=== PATIENT | female | born 1945 | race Caucasian/White ===

== ENCOUNTER 2018-03-01 04:54 | Emergency (ER) | payer MEDICARE ==
[~2018-03-01 04:54] MED LIST: ASPI325T PO; DHA100CA OR; IRBE150T51 PO; KCL20 PO; SERT100 PO
[2018-03-01 05:01] VITALS: BP 121/73; PULSE 87; RESP 16; O2SAT 99
[2018-03-01 05:54] LABS: BACTERIA, URINE OCC /hpf; BILIRUBIN, URINE NEG (NEG); BLOOD, URINE NEG (NEG); GLUCOSE,URINE NEG (NEG); HYALINE CAST, URINE 15 /lpf (RARE); KETONE, URINE TRACE mg/dL (NEG); MUCUS URINE FEW /lpf (OCC); NITRITE,URINE NEG (NEG); SQUAMOUS EPITHELIAL CELL URINE 1 /hpf (0-5); TRANSITIONAL EPI CELLS, URINE <1 /hpf; URINE COLOR DARK-BROWN (YELLW/STRAW); URINE LEUKOCYTE ESTERASE SMALL (NEG)
[2018-03-01] MEDS ORDERED: METO25TA3 PO (05:58)
[2018-03-01] MEDS ORDERED: ACYC200C66 PO (05:58)
[2018-03-01] MEDS ORDERED: PRIL20TA2 (05:58)
[2018-03-01] MEDS ORDERED: FOLBTAB4 (05:58)
[2018-03-01] MEDS ORDERED: LOVA10TA PO (05:58)
[2018-03-01] MEDS ORDERED: LAMO100T PO (05:58)
[2018-03-01] MEDS ORDERED: LISI2.5T3 PO (05:58)
[2018-03-01] MEDS ORDERED: LENA10CA (05:58)
[2018-03-01 06:09] VITALS: O2SAT 99
[2018-03-01 06:31] LABS: AUTOMATED NEUTROPHIL # 4.3 TH/MM3 (1.8-7.7); BASOPHIL # 0.1 TH/MM3 (0-0.2); EOSINOPHIL # 0.2 TH/MM3 (0-0.4); EOSINOPHIL % 3.1 % (0.0-4.0); HEMATOCRIT 41.1 % (35.0-46.0); HEMOGLOBIN 14.3 GM/DL (11.6-15.3); LYMPH % 17.7 % (9.0-44.0); LYMPHOCYTE # 1.1 TH/MM3 (1.0-4.8); MEAN CELL VOLUME 88.1 FL (80.0-100.0); MEAN CORPUSCULAR HEMOGLOBIN 30.6 PG (27.0-34.0); MEAN CORPUSCULAR HGB CONC 34.7 % (32.0-36.0); MONO % 10.9 % (0.0-8.0); MONOCYTE # 0.7 TH/MM3 (0-0.9); NEUT % 67.3 % (16.0-70.0); PLATELET COUNT 279 TH/MM3 (150-450); RED BLOOD COUNT 4.67 MIL/MM3 (4.00-5.30); RED CELL DISTRIBUTION WIDTH 16.2 % (11.6-17.2); WHITE BLOOD COUNT 6.4 TH/MM3 (4.0-11.0)
[2018-03-01 06:55] LABS: ALBUMIN 3.6 GM/DL (3.4-5.0); ALKALINE PHOSPHATASE 58 U/L (45-117); ALT (GPT) 33 U/L (10-53); AST (GOT) 32 U/L (15-37); BICARBONATE 23.4 MEQ/L (21.0-32.0); BLOOD UREA NITROGEN 24 MG/DL (7-18); CALCIUM 9.3 MG/DL (8.5-10.1); CHLORIDE 107 MEQ/L (98-107); GLOMERULAR FILTRATION RATE 37 ML/MIN (>89); GLUCOSE,RANDOM 160 MG/DL (74-106); SODIUM (NA) 143 MEQ/L (136-145); TOTAL BILIRUBIN ADULT 1.7 MG/DL (0.2-1.0); TOTAL PROTEIN 6.7 GM/DL (6.4-8.2)
--- NOTE | 2018-03-01 07:00 | PD ---
HPI Chief Complaint: Abdominal Pain Time Seen by Provider: 05:12 Travel History International Travel<30 days: No Contact w/Intl Traveler<30days: No Traveled to known affect area: No History of Present Illness HPI Patient is a 72-year-old female with multiple medical complaints she is saying that she is having dysuria difficulty urinating and has hematuria she has a bladder suspension surgery that she is waiting to have with Dr. Headley she also reports that she is on Eliquis for multiple myeloma she has a cardiac arrhythmia she has paroxysmal A. fib for which she is taking the Eliquis she says she has cognitive issues and psychological issues and her main complaint tonight is dysuria and decreased output urgency and hematuria she has not seen another doctor for this and she is not taking any medication to alleviate the symptoms PFSH Past Medical History Asthma: Yes Atrial Fibrillation: Yes Bipolar Disorder: Yes Anxiety: Yes Depression: Yes Heart Rhythm Problems: Yes (HR BEEN ELEVATED "W/OUT REASON RECENTLY") Cancer: Yes (MELANOMAS,ALL TYPES SKIN CA) Cardiovascular Problems: Yes High Cholesterol: No Chest Pain: Yes ("SOMETIMES WITH S/S OF TIA") Congestive Heart Failure: No Diabetes: No Patient Takes Glucophage: No Diminished Hearing: No Endocrine: No Genitourinary: No Hypertension: Yes Medical other: Yes (myeloma) Musculoskeletal: Yes (ARTHRITIS) Neurologic: Yes (HX TIAS THINKS THIS IS HER 4TH,LAST TIA ABOUT 2YRS AGO) Psychiatric: Yes Reproductive: No Respiratory: Yes Thyroid Disease: No Menopausal: Yes Past Surgical History Other Surgery: Yes (BREAST REDUCTION,TUMMY TUCK, SINUS, ) Social History Alcohol Use: Yes (OCC) Tobacco Use: No Substance Use: No Allergies-Medications (Allergen,Severity, Reaction): Coded Allergies: No Known Allergies (Verified Allergy, Unknown, 03/02/18) Reported Meds & Prescriptions Reported Meds & Active Scripts Active Pyridium (Phenazopyridine HCl) 100 Mg Tab 100 Mg PO Q8H PRN Levaquin (Levofloxacin) 750 Mg Tablet 750 Mg PO DAILY Reported Dexamethasone 4 Mg Tab 4 Mg PO WEEKLY Flonase Nasal [place] (Fluticasone Nasal [place]) 50 Mcg/Act [place] 50 Mcg EACH NARE BID Revlimid (Lenalidomide) 20 Mg Capsule 15 Mg PO DAILY Prilosec (Omeprazole Magnesium) 20 Mg Tab 40 Mg Acyclovir 200 Mg Cap 200 Mg PO BID NEB Lamotrigine 100 Mg Tab 100 Mg PO DAILY Revlimid (Lenalidomide) 10 Mg Capsule 15 Lovastatin 10 Mg Tab 10 Mg PO DAILY Lisinopril 2.5 Mg Tab 2.5 Mg PO DAILY Folbic (Folic Dmkt-Mzgwwzbtax-Jugukfaa) 2.5-25-2 Mg Tab Metoprolol Tartrate 25 Mg Tab 12.5 Mg PO BID Review of Systems Except as stated in HPI: all other systems reviewed are Neg General / Constitutional: Positive: Chills Genitourinary: Positive: Urgency, Dysuria, Hematuria Physical Exam Narrative Patient has white cells and bacteria and was given Ancef and treated with Keflex follow-up with Dr. Headley Data Data Last Documented VS Orders Orders Urinalysis - C+S If Indicated (03/01/18 05:19) Urine Culture (03/01/18 05:35) Complete Blood Count With Diff (03/01/18 06:06) Comprehensive Metabolic Panel (03/01/18 06:06) Iv Access Insert/Monitor (03/01/18 06:06) Oxygen Administration (03/01/18 06:06) Oximetry (03/01/18 06:06) Lipase (03/01/18 06:06) Cefazolin Inj (Ancef Inj) (03/01/18 07:00) Ed Discharge Order (03/01/18 07:21) Labs Laboratory Tests Test 03/01/18 05:35 03/01/18 06:10 Urine Color DARK-BROWN Urine Turbidity HAZY Urine pH 5.0 Urine Specific [place] 1.020 Urine Protein TRACE mg/dL Urine Glucose (UA) NEG mg/dL Urine Ketones TRACE mg/dL Urine Occult Blood NEG Urine Nitrite NEG Urine Bilirubin NEG Urine Urobilinogen 2.0 MG/DL Urine Leukocyte Esterase SMALL Urine WBC 3 /hpf Urine Squamous Epithelial Cells 1 /hpf Urine Transitional Epithelial Cells <1 /hpf Urine Bacteria OCC /hpf Urine Hyaline Casts 15 /lpf Urine Mucus FEW /lpf Microscopic Urinalysis Comment CATH-CULTURE IND White Blood Count 6.4 TH/MM3 Red Blood Count 4.67 MIL/MM3 Hemoglobin 14.3 GM/DL Hematocrit 41.1 % Mean Corpuscular Volume 88.1 FL Mean Corpuscular Hemoglobin 30.6 PG Mean Corpuscular Hemoglobin Concent 34.7 % Red Cell Distribution Width 16.2 % Platelet Count 279 TH/MM3 Mean Platelet Volume 8.0 FL Neutrophils (%) (Auto) 67.3 % Lymphocytes (%) (Auto) 17.7 % Monocytes (%) (Auto) 10.9 % Eosinophils (%) (Auto) 3.1 % Basophils (%) (Auto) 1.0 % Neutrophils # (Auto) 4.3 TH/MM3 Lymphocytes # (Auto) 1.1 TH/MM3 Monocytes # (Auto) 0.7 TH/MM3 Eosinophils # (Auto) 0.2 TH/MM3 Basophils # (Auto) 0.1 TH/MM3 CBC Comment DIFF FINAL Differential Comment Blood Urea Nitrogen 24 MG/DL Creatinine 1.40 MG/DL Random Glucose 160 MG/DL Total Protein 6.7 GM/DL Albumin 3.6 GM/DL Calcium Level 9.3 MG/DL Alkaline Phosphatase 58 U/L Aspartate Amino Transf (AST/SGOT) 32 U/L Alanine Aminotransferase (ALT/SGPT) 33 U/L Total Bilirubin 1.7 MG/DL Sodium Level 143 MEQ/L Potassium Level 4.1 MEQ/L Chloride Level 107 MEQ/L Carbon Dioxide Level 23.4 MEQ/L Anion Gap 13 MEQ/L Estimat Glomerular Filtration Rate 37 ML/MIN Lipase 84 U/L MDM Medical Decision Making Medical Screen Exam Complete: Yes Emergency Medical Condition: Yes Medical Record Reviewed: Yes Differential Diagnosis UTI prolapsed uterus , bladder and urethral malformation or slippage . pelvic floor incompetence. constipation fecal impaction other causes of dysuria and hesitancy and hematuria Narrative Course Urine is infected and treated with IV ancef and then discharged or levaquin to cover possible klebseilla or proteus as pt has had many UTIs in the past follow up with her PCP Diagnosis Primary Impression: UTI (urinary tract infection) Qualified Codes: N30.01 - Acute cystitis with hematuria Patient Instructions: General Instructions, Urinary Tract Infection in Women ( ED) Additional Instructions: Take Levaquin daily for 7 days follow-up with Dr. Gabino Headley for possible bladder suspension surgery as you have discussed return to the ER for any worsening symptoms or inability to eat or severe pain or inability to tolerate the p.o. antibiotics.. Otherwise keep your appointment with the feed management advisor Dr. Gabino Headley Scripts Phenazopyridine (Pyridium) 100 Mg Tab 100 MG PO Q8H Y for DYSURIA, #6 TAB 0 Refills Prov: Gokul Aocsta MD 03/01/18 Levofloxacin (Levaquin) 750 Mg Tablet 750 MG PO DAILY for Infection, #7 TAB 0 Refills Prov: Gokul Acosta MD 03/01/18 Disposition: 01 DISCHARGE HOME Condition: Good Gokul Acosta MD March 01, 2018 07:00
[2018-03-01] MEDS ORDERED: LEVA750T9 PO (07:02)
[2018-03-01] MEDS ORDERED: PHEN0.4T PO (07:02)
[2018-03-01 07:32] VITALS: BP 124/70; PULSE 72; RESP 18; O2SAT 98
[2018-03-01 08:07] VITALS: BP 119/71
[2018-03-02] MEDS ORDERED: LENA20CA PO (14:04)
[2018-03-02] MEDS ORDERED: FLUT1SPR5 EACH NARE (14:04)
[2018-03-02] MEDS ORDERED: DEXA4TAB PO (14:04)
== END 2018-03-01 08:08 | disposition home or self-care (01) ==
LOC: NEPE 04:54
DX: N30.01 Acute cystitis with hematuria (principal); I48.0 Paroxysmal atrial fibrillation; I10 Essential (primary) hypertension; Z79.01 Long term (current) use of anticoagulants
CPT/HCPCS: 80053; 81001; 83690; 85025; 87077; 87086; 87186; 96374; 99284; J0690

== ENCOUNTER 2018-03-02 10:15 | Inpatient (IN) | payer OTHER, MEDICARE ==
[~2018-03-02] VITALS: Ht 170.2 cm; Wt 79.7 kg
[~2018-03-02 10:15] MED LIST changes: +ACYC200C66 PO; -ASPI325T PO; -DHA100CA OR; +FOLBTAB4; -IRBE150T51 PO; -KCL20 PO; +LAMO100T PO; +LENA10CA; +LEVA750T9 PO; +LISI2.5T3 PO; +LOVA10TA PO; +METO25TA3 PO; +PHEN0.4T PO; +PRIL20TA2; -SERT100 PO
[2018-03-02 10:20] VITALS: BP_SYST 148; PULSE 82; RESP 19; TEMP 98.1; O2SAT 98
--- NOTE | 2018-03-02 10:55 | PD ---
HPI Chief Complaint: Suicide Ideation/Attempt Time Seen by Provider: 10:32 Travel History International Travel<30 days: No Contact w/Intl Traveler<30days: No Traveled to known affect area: No History of Present Illness HPI 72-year-old female presents emergency department for evaluation of having suicidal ideations and depression that is been present intermittently since she was 19 years old. She decided to come in today because she was having trouble dialing the phone at home to call her psychiatrist. Says that she was having difficulty because she felt depressed and she felt somewhat helpless. Says that she would kill herself by driving into a ditch or taking pills but she has no history of actual attempt. Patient says she saw her psychiatrist, Dr. Castellano on Saturday who change the medication. Says that she was told to double up on her olanzapine and lamotrigine and told to stop sertraline. She was given the diagnosis of bipolar disorder and is actually to follow-up with him in 6 weeks. She denies illicit drug use or any medications that she has not been prescribed. 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 Of note, patient was diagnosed with urinary tract infection 2 days ago and given medication. She states compliance with this medication. PFSH Past Medical History Hx Anticoagulant Therapy: Yes (ELIQUIS) Asthma: Yes Atrial Fibrillation: Yes Bipolar Disorder: Yes Anxiety: Yes Depression: Yes Heart Rhythm Problems: Yes (HR BEEN ELEVATED "W/OUT REASON RECENTLY") Cancer: Yes (MELANOMAS,ALL TYPES SKIN CA) Cardiovascular Problems: Yes High Cholesterol: No Chemotherapy: Yes (HX OF MULTIPLE MYELOMA) Chest Pain: Yes ("SOMETIMES WITH S/S OF TIA") Congestive Heart Failure: No Cerebrovascular Accident: Yes (TIA) Diabetes: No Diminished Hearing: No Endocrine: No Genitourinary: No Hypertension: Yes Musculoskeletal: Yes (ARTHRITIS) Neurologic: Yes (HX TIAS THINKS THIS IS HER 4TH,LAST TIA ABOUT 2YRS AGO) Psychiatric: Yes Reproductive: No Respiratory: Yes (ASTHMA/ SLEEP APNEA) Thyroid Disease: No ?: Not Menopausal: Yes Past Surgical History Other Surgery: Yes (BREAST REDUCTION,TUMMY TUCK, SINUS, ) Social History Alcohol Use: Yes (OCC) Tobacco Use: No Substance Use: No Allergies-Medications (Allergen,Severity, Reaction): Coded Allergies: No Known Allergies (Verified Allergy, Unknown, 03/02/18) Reported Meds & Prescriptions Reported Meds & Active Scripts Active Pyridium (Phenazopyridine HCl) 100 Mg Tab 100 Mg PO Q8H PRN Levaquin (Levofloxacin) 750 Mg Tablet 750 Mg PO DAILY Reported Dexamethasone 4 Mg Tab 4 Mg PO WEEKLY Flonase Nasal [place] (Fluticasone Nasal [place]) 50 Mcg/Act [place] 50 Mcg EACH NARE BID Revlimid (Lenalidomide) 20 Mg Capsule 15 Mg PO DAILY Prilosec (Omeprazole Magnesium) 20 Mg Tab 40 Mg Acyclovir 200 Mg Cap 200 Mg PO BID NEB Lamotrigine 100 Mg Tab 100 Mg PO DAILY Revlimid (Lenalidomide) 10 Mg Capsule 15 Lovastatin 10 Mg Tab 10 Mg PO DAILY Lisinopril 2.5 Mg Tab 2.5 Mg PO DAILY Folbic (Folic Bizp-Whizfpdeuc-Jwrerzmf) 2.5-25-2 Mg Tab Metoprolol Tartrate 25 Mg Tab 12.5 Mg PO BID Review of Systems Except as stated in HPI: all other systems reviewed are Neg Physical Exam Narrative GENERAL: Well-developed, well-nourished no apparent distress SKIN: Focused skin assessment warm/dry. HEAD: Atraumatic. Normocephalic. EYES: Pupils equal and round. No scleral icterus. No injection or drainage. No nystagmus, PERRLA, EOMI ENT: No nasal bleeding or discharge. Mucous membranes pink and moist. Tympanic membranes pearly sullivan without bulging or erythema. No obvious air- fluid level NECK: Trachea midline. No JVD. No lymphadenopathy CARDIOVASCULAR: Regular rate and rhythm. No murmur appreciated. RESPIRATORY: No accessory muscle use. Clear to auscultation. Breath sounds equal bilaterally. No CVA tenderness MUSCULOSKELETAL: No obvious deformities. No clubbing. No cyanosis. No edema. NEUROLOGICAL: Awake and alert. No obvious cranial nerve deficits. Motor grossly within normal limits. Normal speech. PSYCHIATRIC: Appropriate mood and affect; tearful when explaining her situation and symptoms Data Data Last Documented VS Vital Signs Date Time Temp Pulse Resp B/P (MAP) Pulse Ox O2 Delivery O2 Flow Rate FiO2 03/02/18 11:21 18 03/02/18 10:20 98.1 82 148/ 98 Orders Orders Complete Blood Count With Diff (03/02/18 10:33) Comprehensive Metabolic Panel (03/02/18 10:33) Thyroid Stimulating Hormone (03/02/18 10:33) Urinalysis - C+S If Indicated (03/02/18 10:33) Psych Screen (03/02/18 10:33) Drug Screen, Random Urine (03/02/18 10:33) Free T3 (03/02/18 12:29) Free Thyroxine (T4) (03/02/18 12:29) Consult Hospitalist (03/02/18 ) Admit Order (Ed Use Only) (03/02/18 12:46) Labs Laboratory Tests Test 03/02/18 11:06 03/02/18 11:17 Urine Color YELLOW Urine Turbidity CLEAR Urine pH 6.5 Urine Specific [place] 1.009 Urine Protein NEG mg/dL Urine Glucose (UA) NEG mg/dL Urine Ketones NEG mg/dL Urine Occult Blood NEG Urine Nitrite NEG Urine Bilirubin NEG Urine Urobilinogen LESS THAN 2.0 MG/DL Urine Leukocyte Esterase NEG Urine RBC LESS THAN 1 /hpf Urine WBC LESS THAN 1 /hpf Urine Squamous Epithelial Cells 1 /hpf Microscopic Urinalysis Comment CULT NOT INDICATED Urine Opiates Screen NEG Urine Barbiturates Screen NEG Urine Amphetamines Screen NEG Urine Benzodiazepines Screen NEG Urine Cocaine Screen NEG Urine Cannabinoids Screen NEG White Blood Count 5.3 TH/MM3 Red Blood Count 4.06 MIL/MM3 Hemoglobin 12.8 GM/DL Hematocrit 36.1 % Mean Corpuscular Volume 89.0 FL Mean Corpuscular Hemoglobin 31.5 PG Mean Corpuscular Hemoglobin Concent 35.4 % Red Cell Distribution Width 16.4 % Platelet Count 217 TH/MM3 Mean Platelet Volume 8.1 FL Neutrophils (%) (Auto) 56.2 % Lymphocytes (%) (Auto) 28.1 % Monocytes (%) (Auto) 7.8 % Eosinophils (%) (Auto) 6.8 % Basophils (%) (Auto) 1.1 % Neutrophils # (Auto) 3.0 TH/MM3 Lymphocytes # (Auto) 1.5 TH/MM3 Monocytes # (Auto) 0.4 TH/MM3 Eosinophils # (Auto) 0.4 TH/MM3 Basophils # (Auto) 0.1 TH/MM3 CBC Comment DIFF FINAL Differential Comment Blood Urea Nitrogen 16 MG/DL Creatinine 1.51 MG/DL Random Glucose 130 MG/DL Total Protein 6.4 GM/DL Albumin 3.5 GM/DL Calcium Level 8.8 MG/DL Alkaline Phosphatase 52 U/L Aspartate Amino Transf (AST/SGOT) 19 U/L Alanine Aminotransferase (ALT/SGPT) 31 U/L Total Bilirubin 1.5 MG/DL Sodium Level 141 MEQ/L Potassium Level 3.5 MEQ/L Chloride Level 105 MEQ/L Carbon Dioxide Level 26.7 MEQ/L Anion Gap 9 MEQ/L Estimat Glomerular Filtration Rate 34 ML/MIN Thyroid Stimulating Hormone 3rd Gen 65.300 uIU/ML MDM Medical Decision Making Medical Screen Exam Complete: Yes Emergency Medical Condition: Yes Differential Diagnosis Depression, anxiety, suicidal ideations, Narrative Course 72-year-old female presents emergency department for evaluation of having suicidal ideations and depression that is been present intermittently since she was 19 years old. She decided to come in today because she was having trouble dialing the phone at home to call her psychiatrist. Says that she was having difficulty because she felt depressed and she felt somewhat helpless. Says that she would kill herself by driving into a ditch or taking pills but she has no history of actual attempt. Patient says she saw her psychiatrist, Dr. Castellano on Saturday who change the medication. Says that she was told to double up on her olanzapine and lamotrigine and told to stop sertraline. She was given the diagnosis of bipolar disorder and is actually to follow-up with him in 6 weeks. She denies illicit drug use or any medications that she has not been prescribed. 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 Of note, patient was diagnosed with urinary tract infection 2 days ago and given medication. She states compliance with this medication. Pt says she has had vertigo as well secondary to an ear infection she was treated for previously. She denies significant dizziness or vertiginous symptoms now. Vital signs are stable. CBC unremarkable, BUN/creatinine stable, TSH elevated at 65.3. Urinalysis unremarkable. Free T3 and free T4 added for further evaluation of thyroid function. Patient is medically cleared to see psych. I discussed this patient briefly with Dr. Mathews who agreed to evaluate this patient. He agreed that patient needs to have a psych admission with medical consult. Diagnosis Primary Impression: Depressive episode Condition: Stable Mariela Roche March 02, 2018 10:55
[2018-03-02 11:40] LABS: BASOPHIL # 0.1 TH/MM3 (0-0.2); BASOPHIL % 1.1 % (0.0-2.0); EOSINOPHIL # 0.4 TH/MM3 (0-0.4); EOSINOPHIL % 6.8 % (0.0-4.0); HEMATOCRIT 36.1 % (35.0-46.0); HEMOGLOBIN 12.8 GM/DL (11.6-15.3); LYMPH % 28.1 % (9.0-44.0); LYMPHOCYTE # 1.5 TH/MM3 (1.0-4.8); MEAN CORPUSCULAR HEMOGLOBIN 31.5 PG (27.0-34.0); MEAN CORPUSCULAR HGB CONC 35.4 % (32.0-36.0); MEAN PLATELET VOLUME 8.1 FL (7.0-11.0); MONO % 7.8 % (0.0-8.0); MONOCYTE # 0.4 TH/MM3 (0-0.9); NEUT % 56.2 % (16.0-70.0); PLATELET COUNT 217 TH/MM3 (150-450); RED BLOOD COUNT 4.06 MIL/MM3 (4.00-5.30); RED CELL DISTRIBUTION WIDTH 16.4 % (11.6-17.2); WHITE BLOOD COUNT 5.3 TH/MM3 (4.0-11.0)
[2018-03-02 11:46] LABS: BILIRUBIN, URINE NEG (NEG); BLOOD, URINE NEG (NEG); GLUCOSE,URINE NEG (NEG); KETONE, URINE NEG (NEG); NITRITE,URINE NEG (NEG); PH, URINE 6.5 (5.0-8.5); SQUAMOUS EPITHELIAL CELL URINE 1 /hpf (0-5); URINE COLOR YELLOW (YELLW/STRAW); URINE LEUKOCYTE ESTERASE NEG (NEG)
[2018-03-02 12:01] LABS: ALBUMIN 3.5 GM/DL (3.4-5.0); AST (GOT) 19 U/L (15-37); BICARBONATE 26.7 MEQ/L (21.0-32.0); BLOOD UREA NITROGEN 16 MG/DL (7-18); CALCIUM 8.8 MG/DL (8.5-10.1); CHLORIDE 105 MEQ/L (98-107); CREATININE 1.51 MG/DL (0.50-1.00); GLOMERULAR FILTRATION RATE 34 ML/MIN (>89); GLUCOSE,RANDOM 130 MG/DL (74-106); SODIUM (NA) 141 MEQ/L (136-145)
[2018-03-02 12:02] LABS: ALT (GPT) 31 U/L (10-53)
[2018-03-02 12:12] LABS: ALKALINE PHOSPHATASE 52 U/L (45-117); TOTAL BILIRUBIN ADULT 1.5 MG/DL (0.2-1.0); TOTAL PROTEIN 6.4 GM/DL (6.4-8.2)
[2018-03-02] MEDS ORDERED: ALUMINUM/MAGNESIUM/SIMETH 30 ML CUP PO PRN (13:00)
[2018-03-02] MEDS ORDERED: PHENAZOPYRIDINE HCL 100 MG TAB PO PRN (13:00)
[2018-03-02] MEDS ORDERED: LORazepam 2 MG/ML VIAL IM PRN (13:00)
[2018-03-02] MEDS ORDERED: PILL SPLITTER OTHER PRN (13:00)
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
[2018-03-02] MEDS: lamoTRIgine 100 MG TAB PO SCH (13:39)
[2018-03-02] MEDS ORDERED: DEXA4TAB PO (14:04)
[2018-03-02] MEDS ORDERED: FLUT1SPR5 EACH NARE (14:04)
[2018-03-02] MEDS ORDERED: LENA20CA PO (14:04)
[2018-03-02 14:15] VITALS: BP 140/80; PULSE 72; RESP 18; O2SAT 100
[2018-03-02] MEDS ORDERED: cloNIDine HCL 0.1 MG TAB PO PRN (14:30)
[2018-03-02] MEDS ORDERED: POTASSIUM CHLORIDE 20 MEQ CONTROLLED RELEASE TAB PO ONE (14:30)
[2018-03-02] MEDS: PANTOPRAZOLE SOD 40 MG DELAYED RELEASE TAB PO SCH (14:47)
--- NOTE | 2018-03-02 15:44 | PD.CONS ---
HPI Service [facility] Consult Requested By Mariela Roche Reason for Consult Medical management Primary Care Physician Ivett Arana M.D. Diagnoses: History of Present Illness The patient is a 72-year-old female with a recent diagnosis of bipolar disorder who is presenting to the hospital for severe depression and suicidal ideation. The patient says she has had lots of ups and downs and has been diagnosed with bipolar disorder about a month ago. She says some of the medications she was started on or contraindicated with other medication so she has been having a lot of medication adjustments recently. She said that she has been having a lot of depressive thoughts. She says she lives alone and does not have enough money to afford anything. She says she had to stop taking some of her medications because she could not afford her prescriptions, including her thyroid medication. She says she was in the emergency department the other day and was diagnosed with a UTI. She says her vertigo has been worse the past few days. She says she recently had an inner ear infection. She says that because of her current mood she has been thinking about ending her life. She came to the hospital to get stabilized. She says she was diagnosed with multiple myeloma and is currently on chemotherapy. She was also diagnosed with paroxysmal atrial fibrillation. Review of Systems Except as stated in HPI: all other systems reviewed are Neg Past Family Social History Allergies: Coded Allergies: No Known Allergies (Verified Allergy, Unknown, 03/02/18) Past Medical History Asthma Atrial fibrillation Bipolar disorder Skin cancer GERD Multiple myeloma TIA HTN OA MANGO Hypothyroidism Past Surgical History Breast reduction Tummy tuck Sinus surgery Family History Colon cancer Social History The pt does not smoke. She rarely drinks. She denies illicit drug use. Physical Exam Vital Signs Vital Signs Date Time Temp Pulse Resp B/P (MAP) Pulse Ox O2 Delivery O2 Flow Rate FiO2 03/02/18 14:15 72 18 140/80 (100) 100 Room Air 03/02/18 11:21 18 03/02/18 10:20 98.1 82 19 148/ 98 Physical Exam GENERAL: Well-developed, well-nourished. SKIN: Focused skin assessment warm/dry. HEAD: Atraumatic. Normocephalic. EYES: Pupils equal and round. No scleral icterus. No injection or drainage. ENT: No nasal bleeding or discharge. Mucous membranes pink and moist. NECK: Trachea midline. No JVD. No lymphadenopathy CARDIOVASCULAR: Regular rate and rhythm. No murmur appreciated. RESPIRATORY: No accessory muscle use. Clear to auscultation. Breath sounds equal bilaterally. MUSCULOSKELETAL: No obvious deformities. No clubbing. No cyanosis. No edema. NEUROLOGICAL: Awake and alert. No obvious cranial nerve deficits. Motor grossly within normal limits. Normal speech. PSYCHIATRIC: Teary-eyed and anxious. Laboratory Laboratory Tests Test 03/02/18 11:06 03/02/18 11:17 Urine Color YELLOW Urine Turbidity CLEAR Urine pH 6.5 Urine Specific [place] 1.009 Urine Protein NEG Urine Glucose (UA) NEG Urine Ketones NEG Urine Occult Blood NEG Urine Nitrite NEG Urine Bilirubin NEG Urine Urobilinogen LESS THAN 2.0 Urine Leukocyte Esterase NEG Urine RBC LESS THAN 1 Urine WBC LESS THAN 1 Urine Squamous Epithelial Cells 1 Microscopic Urinalysis Comment CULT NOT INDICATED Urine Random Creatinine 44.0 Urine Random Sodium 33 Urine Opiates Screen NEG Urine Barbiturates Screen NEG Urine Amphetamines Screen NEG Urine Benzodiazepines Screen NEG Urine Cocaine Screen NEG Urine Cannabinoids Screen NEG White Blood Count 5.3 Red Blood Count 4.06 Hemoglobin 12.8 Hematocrit 36.1 Mean Corpuscular Volume 89.0 Mean Corpuscular Hemoglobin 31.5 Mean Corpuscular Hemoglobin Concent 35.4 Red Cell Distribution Width 16.4 Platelet Count 217 Mean Platelet Volume 8.1 Neutrophils (%) (Auto) 56.2 Lymphocytes (%) (Auto) 28.1 Monocytes (%) (Auto) 7.8 Eosinophils (%) (Auto) 6.8 Basophils (%) (Auto) 1.1 Neutrophils # (Auto) 3.0 Lymphocytes # (Auto) 1.5 Monocytes # (Auto) 0.4 Eosinophils # (Auto) 0.4 Basophils # (Auto) 0.1 CBC Comment DIFF FINAL Differential Comment Blood Urea Nitrogen 16 Creatinine 1.51 Random Glucose 130 Total Protein 6.4 Albumin 3.5 Calcium Level 8.8 Alkaline Phosphatase 52 Aspartate Amino Transf (AST/SGOT) 19 Alanine Aminotransferase (ALT/SGPT) 31 Total Bilirubin 1.5 Sodium Level 141 Potassium Level 3.5 Chloride Level 105 Carbon Dioxide Level 26.7 Anion Gap 9 Estimat Glomerular Filtration Rate 34 Thyroid Stimulating Hormone 3rd Gen 65.300 Result Diagram: 03/02/18 1117 03/02/18 1117 Assessment and Plan Assessment and Plan Suicidal ideation The patient was recently diagnosed with bipolar disorder and came into the hospital with suicidal thoughts. - Management per psychiatry. Hypothyroidism The patient has not taken her levothyroxine in over 3 weeks secondary to not being able to afford it. Her TSH was elevated over 60. She believes her home dose of levothyroxine was 0.5. - Resume levothyroxine at 75 mcg p.o. daily. - Repeat TSH as an outpatient. Acute renal failure FENa is calculated at 0.8%, indicating a prerenal etiology. - IV fluid bolus. - Follow BMP and avoid nephrotoxins. - Renal ultrasound pending. Multiple myeloma The patient is on chemotherapy (Revlimid). - continue home medication regimen. - outpt follow-up. Paroxysmal atrial fibrillation The patient is on metoprolol and Eliquis. - Resume home medication regimen. Hyperglycemia May be a stress reaction. - follow BMP. - A1c. PPx: [place] Discussed Condition With Pt, Jasper Unger DO March 02, 2018 15:44
[2018-03-02] MEDS ORDERED: SODIUM CHLOR 0.45% 1000 ML INJ 1,000 ML IV ONE (15:45)
[2018-03-02 16:45] LABS: FREE T3 1.21 PG/ML (2.18-3.98); FREE T4 0.29 NG/DL (0.76-1.46)
[2018-03-02] MEDS ORDERED: LEVOTHYROXINE SODIUM 75 MCG TAB PO SCH (17:15)
--- NOTE | 2018-03-02 17:21 | RADRPT ---
EXAM DATE: 03/02/2018 4:22 PM EDT AGE/SEX: 72 years / Female INDICATIONS: Increased lab values. CLINICAL DATA: This is the patient's initial encounter. Patient reports that signs and symptoms have been present for 1 day and indicates a pain score of 0/10. MEDICAL/SURGICAL HISTORY: Transient ischemic attack. Melanoma. Multiple Myeloma. . COMPARISON: No prior [facility] exams available for comparison. No external comparison. MEASUREMENTS: Right Kidney:__9.4 x 5.1 x 4.7 cm cm Left Kidney:__11.6 x 5.3 x 5.7 cm cm FINDINGS: Right Kidney: No evidence of hydronephrosis, suspicious renal masses or nephrolithiasis. Left Kidney: No evidence of hydronephrosis, suspicious renal masses or nephrolithiasis. Bladder: Within normal limits given the degree of distension. CONCLUSION: 1. Asymmetric renal size with decreased size of right kidney. 2. No evidence of hydronephrosis, suspicious renal masses or nephrolithiasis. Electronically signed by: Chucky Aguilar MD 03/02/2018 5:20 PM EDT
--- NOTE | 2018-03-02 17:30 | EKG ---
Date Performed: 03/02/2018 Time Performed: 13:10:40 PTAGE: 72 years EKG: Sinus rhythm MINIMAL VOLTAGE CRITERIA FOR LVH, CONSIDER NORMAL VARIANT MODERATE T-WAVE ABNORMALITY, CONSIDER LATE RAL ISCHEMIA ABNORMAL ECG PREVIOUS TRACING : 03/20/2013 16.45 Compared to previous tracing, minimal voltage criteria for LVH is now present, high lateral T wave inversion is now more pronounced. DOCTOR: Lisandro Holm Interpretating Date/Time 03/02/2018 17:28:54
[2018-03-02 18:18] VITALS: BP 140/78; PULSE 82; RESP 18; O2SAT 97
[2018-03-02] MEDS: LEVOTHYROXINE SODIUM 75 MCG TAB PO SCH (18:18)
[2018-03-02 22:53] VITALS: BP 158/94; PULSE 66; RESP 20; O2SAT 97
[2018-03-02] MEDS: ACYCLOVIR 200 MG CAP PO SCH (22:55)
[2018-03-02] MEDS: FLUTICASONE PROPIONATE 50 MCG/ACT 16 GM NASAL SPRAY EACH NARE SCH (22:55)
[2018-03-02] MEDS: METOPROLOL TARTRATE 25 MG TAB PO SCH (22:56)
[2018-03-02] MEDS: DOCUSATE SODIUM 50 MG/SENNA 8.6 MG TAB PO SCH (22:56)
[2018-03-03 04:35] VITALS: BP 143/68; PULSE 56; RESP 17; O2SAT 99
[2018-03-03] MEDS: ACETAMINOPHEN 325 MG TAB PO PRN ×2 (04:40→14:58)
[2018-03-03 05:00] LABS: BASOPHIL # 0.1 TH/MM3 (0-0.2); BASOPHIL % 1.3 % (0.0-2.0); EOSINOPHIL # 0.4 TH/MM3 (0-0.4); EOSINOPHIL % 6.9 % (0.0-4.0); HEMATOCRIT 36.4 % (35.0-46.0); HEMOGLOBIN 12.5 GM/DL (11.6-15.3); LYMPH % 27.8 % (9.0-44.0); LYMPHOCYTE # 1.4 TH/MM3 (1.0-4.8); MEAN CELL VOLUME 90.1 FL (80.0-100.0); MEAN CORPUSCULAR HEMOGLOBIN 30.9 PG (27.0-34.0); MEAN CORPUSCULAR HGB CONC 34.2 % (32.0-36.0); MEAN PLATELET VOLUME 8.5 FL (7.0-11.0); MONO % 5.4 % (0.0-8.0); MONOCYTE # 0.3 TH/MM3 (0-0.9); NEUT % 58.6 % (16.0-70.0); PLATELET COUNT 201 TH/MM3 (150-450); RED BLOOD COUNT 4.03 MIL/MM3 (4.00-5.30); RED CELL DISTRIBUTION WIDTH 16.5 % (11.6-17.2); WHITE BLOOD COUNT 5.1 TH/MM3 (4.0-11.0)
[2018-03-03 05:23] LABS: ALBUMIN 3.3 GM/DL (3.4-5.0); AST (GOT) 18 U/L (15-37); BICARBONATE 28.3 MEQ/L (21.0-32.0); BLOOD UREA NITROGEN 15 MG/DL (7-18); CALCIUM 8.4 MG/DL (8.5-10.1); CHLORIDE 105 MEQ/L (98-107); CHOLESTEROL 210 MG/DL (120-200); CREATININE 1.12 MG/DL (0.50-1.00); GLOMERULAR FILTRATION RATE 48 ML/MIN (>89); GLUCOSE,RANDOM 159 MG/DL (74-106); MAGNESIUM 2.1 MG/DL (1.5-2.5); SODIUM (NA) 142 MEQ/L (136-145); TRIGLYCERIDES 182 MG/DL (42-150)
[2018-03-03 05:49] LABS: ALKALINE PHOSPHATASE 50 U/L (45-117); ALT (GPT) 27 U/L (10-53); HDL CHOLESTEROL 77.7 MG/DL (40.0-60.0); LDL CHOLESTEROL 96 MG/DL (0-99); PHOSPHORUS 3.2 MG/DL (2.5-4.9); TOTAL BILIRUBIN ADULT 1.2 MG/DL (0.2-1.0); TOTAL PROTEIN 6.3 GM/DL (6.4-8.2)
[2018-03-03] MEDS ORDERED: LEVOTHYROXINE SODIUM 75 MCG TAB PO SCH (06:00)
[2018-03-03 07:29] VITALS: BP 134/78; PULSE 67; RESP 18; O2SAT 99
[2018-03-03] MEDS: PRAVASTATIN SOD 10 MG TAB PO SCH (09:00)
[2018-03-03] MEDS: ACYCLOVIR 200 MG CAP PO SCH ×2 (09:00→20:52)
[2018-03-03] MEDS: METOPROLOL TARTRATE 25 MG TAB PO SCH ×2 (09:21→20:51)
[2018-03-03] MEDS: FLUTICASONE PROPIONATE 50 MCG/ACT 16 GM NASAL SPRAY EACH NARE SCH ×2 (09:21→20:53)
[2018-03-03] MEDS: LISINOPRIL 5 MG TAB PO SCH (09:21)
[2018-03-03] MEDS: MAGNESIUM HYDROXIDE SUSP 30 ML CUP PO PRN (09:21)
[2018-03-03] MEDS: PANTOPRAZOLE SOD 40 MG DELAYED RELEASE TAB PO SCH (09:21)
[2018-03-03] MEDS: DOCUSATE SODIUM 50 MG/SENNA 8.6 MG TAB PO SCH ×2 (09:21→20:51)
[2018-03-03] MEDS: lamoTRIgine 100 MG TAB PO SCH (09:21)
[2018-03-03] MEDS: LEVOTHYROXINE SODIUM 75 MCG TAB PO SCH (09:21)
[2018-03-03] MEDS: LEVOFLOXACIN 750 MG TAB PO SCH (09:21)
[2018-03-03] MEDS ORDERED: POTASSIUM CHLORIDE 25 MEQ EFFERVESCENT TAB PO ONE (12:00)
[2018-03-03 12:44] VITALS: BP 165/81; PULSE 64; RESP 16; TEMP 96; O2SAT 99
--- NOTE | 2018-03-03 16:03 | HHI.PR ---
Subjective Remarks The patient stated that she had chest pain that lasted up to a half hour. She is not sure what part of the chest hurts the most. She is unsure if she had shortness of breath associated with it. She does not have chest pain now. She said she had a bowel movement. She says she has a lot of aches and pains and would like to work with physical therapy. Discussed with nursing at the bedside. Objective Vitals Vital Signs Date Time Temp Pulse Resp B/P (MAP) Pulse Ox O2 Delivery O2 Flow Rate FiO2 03/03/18 12:44 96.0 64 16 165/81 (109) 99 03/03/18 07:29 67 18 134/78 (96) 99 Room Air 03/03/18 04:35 56 17 143/68 (93) 99 Room Air 03/02/18 22:53 66 20 158/94 (115) 97 Room Air 03/02/18 18:18 82 18 140/78 (98) 97 Room Air I/O 03/02/18 03/02/18 03/02/18 03/03/18 03/03/18 03/03/18 07:00 15:00 23:00 07:00 15:00 23:00 Intake Total 800 ml Balance 800 ml Intake IV Total 800 ml Result Diagram: 03/03/18 0420 03/03/18 0420 Imaging Last Impressions Renal Ultrasound 03/02/18 0000 Signed Impressions: CONCLUSION: 1. Asymmetric renal size with decreased size of right kidney. 2. No evidence of hydronephrosis, suspicious renal masses or nephrolithiasis. Objective Remarks GENERAL: Well-developed, well-nourished. SKIN: Focused skin assessment warm/dry. HEAD: Atraumatic. Normocephalic. EYES: Pupils equal and round. No scleral icterus. No injection or drainage. ENT: No nasal bleeding or discharge. Mucous membranes pink and moist. NECK: Trachea midline. No JVD. No lymphadenopathy CARDIOVASCULAR: Regular rate and rhythm. No murmur appreciated. RESPIRATORY: No accessory muscle use. Clear to auscultation. Breath sounds equal bilaterally. MUSCULOSKELETAL: No obvious deformities. No clubbing. No cyanosis. No edema. NEUROLOGICAL: Awake and alert. No obvious cranial nerve deficits. Motor grossly within normal limits. Normal speech. PSYCHIATRIC: Calm. A/P Assessment and Plan Suicidal ideation The patient was recently diagnosed with bipolar disorder and came into the hospital with suicidal thoughts. - Management per psychiatry. Chest pain Possibly related to anxiety. - repeat EKG. - trend trops. - continue Lopressor, lisinopril and statin. Hypothyroidism The patient has not taken her levothyroxine in over 3 weeks secondary to not being able to afford it. Her TSH was elevated over 60. She believes her home dose of levothyroxine was 0.5. - Resume levothyroxine at 50 mcg p.o. daily. - Repeat TSH as an outpatient. Acute renal failure FENa is calculated at 0.8%, indicating a prerenal etiology. Renal US without acute process. S/p IV fluid bolus. - Follow BMP and avoid nephrotoxins. - encourage PO intake. Multiple myeloma The patient is on chemotherapy (Revlimid). - continue home medication regimen. - outpt follow-up. - PT eval. Paroxysmal atrial fibrillation The patient is on metoprolol and Eliquis. Rate is controlled. - Resume home medication regimen. Hyperglycemia May be a stress reaction. - follow BMP. - A1c. PPx: Eliquis Discharge Planning Per primary Jasper Hernandes DO March 03, 2018 16:03
[2018-03-03 18:16] VITALS: BP 144/83; PULSE 69; RESP 16; TEMP 97; O2SAT 96
[2018-03-03 18:17] VITALS: BP 144/83; PULSE 69; RESP 16; TEMP 97; O2SAT 96
[2018-03-03] MEDS: LORazepam 1 MG TAB PO PRN (20:51)
[2018-03-04 06:00] VITALS: BP 179/85; PULSE 66; RESP 17; TEMP 97.4; O2SAT 99
[2018-03-04] MEDS: LEVOTHYROXINE SODIUM 50 MCG TAB PO SCH (06:00)
[2018-03-04 08:22] VITALS: BP 179/85; PULSE 66; RESP 17; TEMP 97.4; O2SAT 99
[2018-03-04] MEDS ORDERED: diphenhydrAMINE HCL 50 MG CAP PO PRN (08:45)
--- NOTE | 2018-03-04 08:48 | HHI.PYPN ---
Subjective Remarks Patient initially admitted to [facility] by Dr. Mathews who did the initial psychiatric H&P on 03/02. Today on 03/04 I have finished the initial psychiatric admitting template orders, and medication reconciliation review. Patient was admitted on a voluntary basis. I concur with that. Patient seen by me today she is alert oriented white female appears stated age sitting quietly in her room nurse Mason present throughout session patient acknowledges somewhat tumultuous relationship with her family various traumas in her life leading to her room being somewhat dubious and contradictory about her living situation when she leaves here. She is unable to contract for safety with us at this time. She acknowledges being bipolar. She does deny voices in her head at this time does deny alcohol or drug use. For now continue treatment Review of Systems Except as stated in HPI: all other systems reviewed are Neg Mental Status Examination Appearance: Appropriate Consciousness: Alert Orientation: x4 Motor Activity: Normal gait Speech: Rapid Language: Adequate Fund of Knowledge: Adequate Attention and Concentration: Easily Distracted Memory: Unremarkable Mood: Sad Affect: Sad Thought Process & Associations: Circumstantial, Tangential Thought Content: Racing thoughts Hallucination Type: None Delusion Type: None Suicidal Ideation: Yes Suicidal Plan: Yes Suicidal Intention: No Homicidal Ideation: No Homicidal Plan: No Homicidal Intention: No Insight: Fair Judgment: Impulsive Results Labs Test 03/03/18 16:18 03/03/18 21:39 Troponin I LESS THAN 0.02 NG/ML LESS THAN 0.02 NG/ML Vitals/IOs Vital Signs Date Time Temp Pulse Resp B/P (MAP) Pulse Ox O2 Delivery O2 Flow Rate FiO2 03/04/18 08:22 97.4 66 17 179/85 (116) 99 03/03/18 07:29 Room Air Assessment & Plan Problem List: (1) Bipolar disorder, curr episode mixed, severe, w/o psychotic features ICD Codes: F31.63 - Bipolar disorder, current episode mixed, severe, without psychotic features Assessment & Plan Estimated LOS: days patient remained somewhat manic with rapid pressured speech she is somewhat tangential and circumstantial needing redirection at times to her focus. However she been no behavior problems. For now continue treatment Justification for Cont. Inpt. At this time patient would decompensate a place to a lower level of care Discharge Planning To be determined Request HC Surrog/Guard Advoc?: No Ulysses Green MD March 04, 2018 08:48
[2018-03-04] MEDS: ACYCLOVIR 200 MG CAP PO SCH ×2 (08:50→21:00)
[2018-03-04] MEDS: METOPROLOL TARTRATE 25 MG TAB PO SCH ×2 (08:50→21:00)
[2018-03-04] MEDS: LISINOPRIL 5 MG TAB PO SCH (08:50)
[2018-03-04] MEDS: DOCUSATE SODIUM 50 MG/SENNA 8.6 MG TAB PO SCH ×2 (08:51→21:00)
[2018-03-04] MEDS: PANTOPRAZOLE SOD 40 MG DELAYED RELEASE TAB PO SCH (08:51)
[2018-03-04] MEDS: PRAVASTATIN SOD 10 MG TAB PO SCH (08:51)
[2018-03-04] MEDS: lamoTRIgine 100 MG TAB PO SCH (08:51)
[2018-03-04] MEDS: FLUTICASONE PROPIONATE 50 MCG/ACT 16 GM NASAL SPRAY EACH NARE SCH ×2 (08:51→21:00)
[2018-03-04] MEDS ORDERED: REVLIMID 15 MG PO SCH (09:00)
--- NOTE | 2018-03-04 09:57 | HHI.PR ---
Subjective Remarks Nursing denies any deterioration since last night. Patient denies having any chest pain today. Denies ever being stented for her arteries. Says she sees a Dr. Guerra in [place]. Objective Vital Signs Date Time Temp Pulse Resp B/P (MAP) Pulse Ox O2 Delivery O2 Flow Rate FiO2 03/04/18 08:22 97.4 66 17 179/85 (116) 99 03/04/18 06:00 97.4 66 17 179/85 (116) 99 03/03/18 18:17 97.0 69 16 144/83 (103) 96 03/03/18 18:16 97.0 69 16 144/83 (103) 96 03/03/18 12:44 96.0 64 16 165/81 (109) 99 I/O 03/03/18 03/03/18 03/03/18 03/04/18 03/04/18 03/04/18 07:00 15:00 23:00 07:00 15:00 23:00 Intake Total 240 ml Balance 240 ml Intake Oral 240 ml # Voids 4 Result Diagram: 03/03/18 0420 03/03/18 0420 Objective Remarks Heart sounds indicate regular rate rhythm, no murmurs Clear lungs bilaterally A/P Assessment and Plan Suicidal ideation The patient was recently diagnosed with bipolar disorder and came into the hospital with suicidal thoughts. - Management per psychiatry. Chest pain - resolved Possibly related to anxiety. - hardcopy EKGs independently reviewed which showed no ST segment changes concerning for ischemia or infarction - troponins are negative. - continue Lopressor, lisinopril and statin. Hypothyroidism The patient has not taken her levothyroxine in over 3 weeks secondary to not being able to afford it. Her TSH was elevated over 60. She believes her home dose of levothyroxine was 0.5. - levothyroxine at 50 mcg - Repeat TSH as an outpatient. Acute renal failure improving w/ IVF - Follow BMP and avoid nephrotoxins. - encourage PO intake. Multiple myeloma The patient is on chemotherapy (Revlimid). - continue home medication regimen. - outpt follow-up. - PT eval. Paroxysmal atrial fibrillation rate controlled, continue eliquis and metoprolol Hyperglycemia May be a stress reaction. - a1c 6.0 John Soto MD March 04, 2018 09:57
--- NOTE | 2018-03-04 14:16 | EKG ---
Date Performed: 03/03/2018 Time Performed: 16:42:54 PTAGE: 72 years EKG: Sinus rhythm NONSPECIFIC T-WAVE ABNORMALITY ABNORMAL ECG PREVIOUS TRACING : 03/03/2018 14.23 Since the previous tracing, no significant change noted DOCTOR: Hill Oshea Interpretating Date/Time 03/04/2018 14:08:30
--- NOTE | 2018-03-04 14:17 | EKG ---
Date Performed: 03/03/2018 Time Performed: 14:23:46 PTAGE: 72 years EKG: Sinus rhythm BORDERLINE LEFT AXIS DEVIATION NONSPECIFIC T-WAVE ABNORMALITY ABNORMAL ECG PREVIOUS TRACING : 03/02/2018 13.10 Since the previous tracing, no significant change noted DOCTOR: Hill Oshea Interpretating Date/Time 03/04/2018 14:08:38
[2018-03-04 18:28] VITALS: BP 187/86; PULSE 70; RESP 18; TEMP 97.1; O2SAT 94
[2018-03-04] MEDS: LORazepam 1 MG TAB PO PRN (21:03)
[2018-03-05 05:54] VITALS: BP 135/69; PULSE 56; RESP 18; TEMP 98.1; O2SAT 96
[2018-03-05] MEDS: LEVOTHYROXINE SODIUM 50 MCG TAB PO SCH (06:00)
[2018-03-05] MEDS ORDERED: ONDANSETRON ODT 4 MG TAB PO PRN (08:30)
--- NOTE | 2018-03-05 08:30 | HHI.PR ---
Subjective Remarks Follow-up visit for FRANKIE, HTN, and A. fib. Nursing does not report any acute concerns or events overnight or this morning. Patient is seen and examined in her room in no acute distress sitting up in chair. She denies any fevers, chills, diarrhea, abdominal pain, shortness of breath, cough, chest pain, heart palpitations, headache or dizziness. Patient does complain of some nausea with no vomiting, states that at home she takes omeprazole for acid reflux. She also complains of constipation and her last bowel movement was a day before yesterday, eating and drinking without any issues. She tells me that she takes Eliquis 5 mg twice a day at home due to her A. fib. She was also recently seen in the emergency department on 03/01 due to a urinary tract infection and states that she started Levaquin the following day. Will be scheduled to have bladder prolapse surgery. She denies any dysuria or hematuria. Is requesting to call her daughter who is [place] to leave a message and make her aware that she is currently in psychiatric department. Objective Vitals Vital Signs Date Time Temp Pulse Resp B/P (MAP) Pulse Ox O2 Delivery O2 Flow Rate FiO2 03/05/18 05:54 98.1 56 18 135/69 (91) 96 03/04/18 18:28 97.1 70 18 187/86 (119) 94 I/O 03/04/18 03/04/18 03/04/18 03/05/18 03/05/18 03/05/18 07:00 15:00 23:00 07:00 15:00 23:00 Intake Total 1020 ml 720 ml 240 ml Output Total 3 ml Balance 1017 ml 720 ml 240 ml Intake Oral 1020 ml 720 ml 240 ml Output Urine Total 3 ml # Voids 4 Result Diagram: 03/03/18 0420 03/03/18 0420 Imaging Last Impressions Renal Ultrasound 03/02/18 0000 Signed Impressions: CONCLUSION: 1. Asymmetric renal size with decreased size of right kidney. 2. No evidence of hydronephrosis, suspicious renal masses or nephrolithiasis. Objective Remarks GENERAL: Well-developed, well-nourished. SKIN: Cool and dry. HEAD: Atraumatic. EYES: Pupils equal and round. No scleral icterus. ENT: Mucous membranes pink and moist. NECK: Trachea midline. CARDIOVASCULAR: Regular rate and rhythm. No murmur appreciated. RESPIRATORY: No accessory muscle use. Clear to auscultation. Breath sounds equal bilaterally. MUSCULOSKELETAL: No obvious deformities. No clubbing. No cyanosis. No edema. NEUROLOGICAL: Awake and alert. No obvious cranial nerve deficits. Motor grossly within normal limits. Normal speech. A/P Assessment and Plan Suicidal ideation The patient was recently diagnosed with bipolar disorder and came into the hospital with suicidal thoughts. - Management per psychiatry. Chest pain - resolved Possibly related to anxiety. - troponins and EKGs are negative. - continue Lopressor, lisinopril and statin. Hypothyroidism The patient has not taken her levothyroxine in over 3 weeks secondary to not being able to afford it. Her TSH was elevated over 60. She believes her home dose of levothyroxine was 0.5. - levothyroxine at 50 mcg - Repeat TSH as an outpatient in 6 weeks. Acute renal failure improving w/ IVF Hypokalemia -Creatinine 1.12--> 1.07, improving - avoid nephrotoxins. -Continue to encourage PO intake. -Potassium level this morning 3.4, replace and recheck in 2 days. UTI+ Enterococcus faecalis 03/02 -Started Levaquin on 03/02, organism sensitive to fluoroquinolone -Patient asymptomatic, afebrile, with no leukocytosis -Discussed with patient renal dosing, pending labs this morning. -We will need to follow-up with surgeon for cystocele. Multiple myeloma The patient is on chemotherapy (Revlimid). - continue home medication regimen. - outpt follow-up. Paroxysmal atrial fibrillation -Currently in normal sinus rhythm, continue beta-pierce. -Restart patient's Eliquis 5 mg twice daily, recheck renal function for dosing adjustments per Hyperglycemia May be a stress reaction. - a1c 6.0 Nausea Constipation -Complaints of nausea without vomiting, possibly related to constipation or medications. Will also start patient on PPI which she is on at home. -As needed Zofran -Continue bowel regimen with as needed laxatives as needed. DVT prophylaxis-Eliquis Discussed with patient and nurse. Michael Thompson March 05, 2018 08:30
[2018-03-05] MEDS: FLUTICASONE PROPIONATE 50 MCG/ACT 16 GM NASAL SPRAY EACH NARE SCH ×2 (09:00→19:38)
[2018-03-05] MEDS: DOCUSATE SODIUM 50 MG/SENNA 8.6 MG TAB PO SCH ×2 (09:00→19:35)
[2018-03-05] MEDS: LISINOPRIL 5 MG TAB PO SCH (09:00)
[2018-03-05] MEDS: ARIPiprazole 5 MG TAB PO SCH (09:30)
--- NOTE | 2018-03-05 09:34 | HHI.PYPN ---
Subjective Remarks Patient seen today in her room with nurse Mason, chart reviewed, patient complaint medications, patient discussed with nurse. Patient alert oriented calm sitting in chair beside her bed. She is alert and oriented. Patient is showing some perseveration about relationship issues going back to her childhood. Stating that she has seen a psychiatrist in the past 6+ weeks who diagnosed her as bipolar. Patient gives no significant bipolar history prior to that denies any prior psychiatric contact for psychotropic medications and psychiatric hospitalizations prior to that. She states he stated that she may benefit from Abilify but wanted to start a different psychotropic first. I do disagree with that. Patient at this time is showing no signs of psychosis or sreedhar. I will offer her Abilify 5 mg daily. Patient though at times is somewhat tangential and circumstantial. At times she was some mild confusion related to past history. It appears she is living in a snf situation right now. When asked what she wants of us she said she wants to get "stabilized". I did discuss procedures to reach that goal that include outpatient counseling and psychiatric management. Patient denies suicidality voices or visions at the present time. She states she has seen a counselor and a psychiatrist but she is questioning her ability to afford it now. She states she has been in contact with [facility] in the past. For now continue treatment with the addition of the Abilify Review of Systems Except as stated in HPI: all other systems reviewed are Neg Mental Status Examination Appearance: Appropriate Consciousness: Alert Orientation: x4 Motor Activity: Normal gait Speech: Rapid Language: Adequate Fund of Knowledge: Adequate Attention and Concentration: Easily Distracted Memory: Unremarkable Mood: Sad Affect: Sad Thought Process & Associations: Circumstantial, Tangential Thought Content: Racing thoughts Hallucination Type: None Delusion Type: None Suicidal Ideation: Yes Suicidal Plan: Yes Suicidal Intention: No Homicidal Ideation: No Homicidal Plan: No Homicidal Intention: No Insight: Fair Judgment: Impulsive Results Vitals/IOs Vital Signs Date Time Temp Pulse Resp B/P (MAP) Pulse Ox O2 Delivery O2 Flow Rate FiO2 03/05/18 05:54 98.1 56 18 135/69 (91) 96 03/03/18 07:29 Room Air Intake and Output 03/05/18 03/05/18 03/06/18 08:00 16:00 00:00 Intake Total 240 ml Balance 240 ml Assessment & Plan Problem List: (1) Bipolar disorder, curr episode mixed, severe, w/o psychotic features ICD Codes: F31.63 - Bipolar disorder, current episode mixed, severe, without psychotic features Assessment & Plan Estimated LOS: days upon further consideration I question the accuracy of her being diagnosed as bipolar considering the diagnoses made within the past 6+ weeks on a 72-year-old lady with no prior psychiatric history or hospitalizations. He may be a component of personality disorder with this also. For now we will add the Abilify continue observation Justification for Cont. Inpt. At this time patient would decompensate a place to a lower level of care Discharge Planning To be determined Request HC Surrog/Guard Advoc?: No Ulysses Green MD March 05, 2018 09:34
[2018-03-05] MEDS: ACYCLOVIR 200 MG CAP PO SCH ×2 (10:26→19:35)
[2018-03-05 10:28] LABS: BICARBONATE 28.4 MEQ/L (21.0-32.0); CALCIUM 8.8 MG/DL (8.5-10.1); CREATININE 1.07 MG/DL (0.50-1.00)
[2018-03-05] MEDS: PANTOPRAZOLE SOD 20 MG DELAYED RELEASE TAB PO SCH (10:39)
[2018-03-05] MEDS: METOPROLOL TARTRATE 25 MG TAB PO SCH ×2 (10:39→19:35)
[2018-03-05] MEDS: lamoTRIgine 100 MG TAB PO SCH (10:39)
[2018-03-05] MEDS: LEVOFLOXACIN 750 MG TAB PO SCH (10:40)
[2018-03-05] MEDS: APIXABAN 5 MG TABLET PO SCH ×2 (10:40→19:35)
[2018-03-05] MEDS ORDERED: POTASSIUM CHLORIDE 20 MEQ CONTROLLED RELEASE TAB PO ONE (11:00)
[2018-03-05 18:00] VITALS: BP 152/93; PULSE 73; RESP 18; TEMP 97.8; O2SAT 97
[2018-03-05] MEDS: PRAVASTATIN SOD 10 MG TAB PO SCH (19:35)
[2018-03-05] MEDS: ACETAMINOPHEN 325 MG TAB PO PRN (19:36)
[2018-03-05] MEDS: REVLIMID 15 MG PO SCH (19:39)
[2018-03-05] MEDS ORDERED: REVLIMID 15 MG PO SCH (21:00)
[2018-03-06] MEDS: LEVOTHYROXINE SODIUM 50 MCG TAB PO SCH (05:49)
[2018-03-06] MEDS: ACETAMINOPHEN 325 MG TAB PO PRN ×2 (05:49→20:48)
[2018-03-06 06:02] VITALS: BP 164/100; PULSE 72; RESP 18; TEMP 97.8; O2SAT 96
--- NOTE | 2018-03-06 08:04 | HHI.PR ---
Subjective Remarks Follow-up visit for FRANKIE, HTN, and A. fib. Patient is seen and examined sitting on the edge of the bed preparing to eat breakfast this morning in no acute distress. She denies any fevers, chills, nausea, vomiting, diarrhea, headache, dizziness, shortness of breath or chest pain. Reports that she was able to move her bowels. Reports that she slept wrong overnight and has a pain in her neck as well as right arm as she slept on this side. She has taken Tylenol with mild relief, no other complaints. Objective Vitals Vital Signs Date Time Temp Pulse Resp B/P (MAP) Pulse Ox O2 Delivery O2 Flow Rate FiO2 03/06/18 06:49 20 03/06/18 06:02 97.8 72 18 164/100 (121) 96 03/05/18 18:00 97.8 73 18 152/93 (112) 97 I/O 03/05/18 03/05/18 03/05/18 03/06/18 03/06/18 03/06/18 07:00 15:00 23:00 07:00 15:00 23:00 Intake Total 2866 ml 240 ml Balance 2866 ml 240 ml Intake Oral 2866 ml 240 ml Result Diagram: 03/03/18 0420 03/05/18 0954 Imaging Last Impressions Renal Ultrasound 03/02/18 0000 Signed Impressions: CONCLUSION: 1. Asymmetric renal size with decreased size of right kidney. 2. No evidence of hydronephrosis, suspicious renal masses or nephrolithiasis. Objective Remarks GENERAL: Well-developed, well-nourished. SKIN: Cool and dry. HEAD: Atraumatic. EYES: Pupils equal and round. No scleral icterus. ENT: Mucous membranes pink and moist. NECK: Trachea midline. CARDIOVASCULAR: Regular rate and rhythm. No murmur appreciated. RESPIRATORY: No accessory muscle use. Clear to auscultation. Breath sounds equal bilaterally. MUSCULOSKELETAL: No obvious deformities. No clubbing. No cyanosis. No edema. NEUROLOGICAL: Awake and alert. No obvious cranial nerve deficits. Motor grossly within normal limits. Normal speech. A/P Assessment and Plan Suicidal ideation The patient was recently diagnosed with bipolar disorder and came into the hospital with suicidal thoughts. - Management per psychiatry. Chest pain - resolved Possibly related to anxiety. - troponins and EKGs are negative. - continue Lopressor, lisinopril and statin. Hypothyroidism The patient has not taken her levothyroxine in over 3 weeks secondary to not being able to afford it. Her TSH was elevated over 60. She believes her home dose of levothyroxine was 0.5. - levothyroxine at 50 mcg - Repeat TSH as an outpatient in 6 weeks. Acute renal failure improving w/ IVF Hypokalemia -Creatinine 1.12--> 1.07, improving - avoid nephrotoxins. -Continue to encourage PO intake. -Potassium level this morning 3.4, replace and recheck tomorrow UTI+ Enterococcus faecalis 03/02 -Started Levaquin on 03/02, organism sensitive to fluoroquinolone -Patient asymptomatic, afebrile, with no leukocytosis -We will need to follow-up with surgeon for cystocele. Multiple myeloma The patient is on chemotherapy (Revlimid). - continue home medication regimen. - outpt follow-up. Paroxysmal atrial fibrillation -Currently in normal sinus rhythm, continue beta-pierce. -Restart patient's Eliquis 5 mg twice daily, recheck renal function for dosing adjustments per HTN -BP noted to be elevated yesterday afternoon as well as this morning, discussed with patient increase of lisinopril to 5 mg daily. -Continue metoprolol 12.5 twice daily. Hyperglycemia May be a stress reaction. - a1c 6.0 Nausea, resolved Constipation, resolved -Continue PPI, as needed Zofran -Continue bowel regimen with as needed laxatives as needed. +BM DVT prophylaxis-Eliquis Discussed with patient. Michael Thompson March 06, 2018 08:04
[2018-03-06] MEDS: lamoTRIgine 100 MG TAB PO SCH (09:00)
[2018-03-06] MEDS ORDERED: LISINOPRIL 5 MG TAB PO SCH (09:00)
[2018-03-06] MEDS: FLUTICASONE PROPIONATE 50 MCG/ACT 16 GM NASAL SPRAY EACH NARE SCH ×2 (09:00→20:43)
[2018-03-06] MEDS: ARIPiprazole 5 MG TAB PO SCH (09:29)
[2018-03-06] MEDS: PANTOPRAZOLE SOD 20 MG DELAYED RELEASE TAB PO SCH (09:29)
[2018-03-06] MEDS: DOCUSATE SODIUM 50 MG/SENNA 8.6 MG TAB PO SCH ×2 (09:29→20:41)
[2018-03-06] MEDS: METOPROLOL TARTRATE 25 MG TAB PO SCH ×2 (09:29→20:41)
[2018-03-06] MEDS: ACYCLOVIR 200 MG CAP PO SCH ×2 (09:29→20:42)
[2018-03-06] MEDS: APIXABAN 5 MG TABLET PO SCH ×2 (09:30→20:41)
--- NOTE | 2018-03-06 15:09 | HHI.PYPN ---
Subjective Remarks Patient seen and examined with nurse in coverage for Dr. Green. Chart reviewed. Case discussed with nursing staff. On my examination today, patient is hyperverbal with rapid, somewhat rambling speech. Affect is fairly labile. Thought process with some loosening of associations. She is disinhibited and distractible. Reports chronic SI since age 19. No reported urge to hurt herself on the inpatient unit. Denies side effects from medications. No acute physical complaints. Review of Systems ROS Limitations: Poor Historian Except as stated in HPI: all other systems reviewed are Neg Mental Status Examination Appearance: Appropriate Consciousness: Alert Orientation: x4 Motor Activity: Other (No motor abnormalities noted) Speech: Rapid Language: Adequate Fund of Knowledge: Adequate Attention and Concentration: Easily Distracted Memory: Unremarkable Mood: Other (Somewhat elevated) Affect: Labile Thought Process & Associations: Loose associations, Tangential Thought Content: Racing thoughts Hallucination Type: None Delusion Type: None Suicidal Ideation: Yes Suicidal Plan: No Suicidal Intention: No Homicidal Ideation: No Homicidal Plan: No Homicidal Intention: No Insight: Fair Judgment: Impulsive Results Labs Labs reviewed Vitals/IOs Vital Signs Date Time Temp Pulse Resp B/P (MAP) Pulse Ox O2 Delivery O2 Flow Rate FiO2 03/06/18 06:49 20 03/06/18 06:02 97.8 72 164/100 (121) 96 03/03/18 07:29 Room Air Intake and Output 03/06/18 03/06/18 03/07/18 08:00 16:00 00:00 Intake Total 600 ml Balance 600 ml Assessment & Plan Problem List: (1) Bipolar disorder, curr episode mixed, severe, w/o psychotic features ICD Codes: F31.63 - Bipolar disorder, current episode mixed, severe, without psychotic features Assessment & Plan Titrate Abilify to 7.5 mg daily for additional mood stabilization. Continue other psychotropics as ordered. Hospitalist input noted and appreciated. Continue other medications and care as ordered. Justification for Cont. Inpt. Med changes. High risk for decompensation in less restrictive environment. Discharge Planning Per Dr. Green Request HC Surrog/Guard Advoc?: No Fabián Workman MD March 06, 2018 15:09
[2018-03-06 18:16] VITALS: BP 169/80; PULSE 62; RESP 16; TEMP 97.9; O2SAT 96
[2018-03-06] MEDS: PRAVASTATIN SOD 10 MG TAB PO SCH (20:41)
[2018-03-06] MEDS: hydrOXYzine HCL 50 MG TAB PO PRN (20:42)
[2018-03-06] MEDS: REVLIMID 15 MG PO SCH ×2 (20:44→21:00)
[2018-03-07] MEDS: MAGNESIUM HYDROXIDE SUSP 30 ML CUP PO PRN (03:57)
[2018-03-07] MEDS: hydrOXYzine HCL 50 MG TAB PO PRN ×2 (03:58→20:30)
[2018-03-07] MEDS: ACETAMINOPHEN 325 MG TAB PO PRN ×3 (03:58→22:04)
[2018-03-07 04:43] VITALS: BP 179/74; PULSE 60; RESP 16; TEMP 96.9; O2SAT 95
[2018-03-07] MEDS: LEVOTHYROXINE SODIUM 50 MCG TAB PO SCH (06:05)
--- NOTE | 2018-03-07 08:11 | HHI.PR ---
Subjective Remarks Follow-up visit for FRANKIE, HTN, and A. fib. Patient is seen and examined sitting up in chair, in no acute distress. Her main complaint this morning is regarding the food, and the fact that she did not receive what she had ordered the day before. She reports that she did not receive 3 meals yesterday and this made her mad. She denies any dysuria, hematuria, vomiting or diarrhea, or fever. She complains of nausea and some chills. Discussed with patient increase in Lisinopril, she states that she is not on the correct BP meds. Discussed the medications that she is on and the changes that have been made. She goes on to explain that one of the BP medications is a primary and the other is a secondary medication. Objective Vitals Vital Signs Date Time Temp Pulse Resp B/P (MAP) Pulse Ox O2 Delivery O2 Flow Rate FiO2 03/07/18 04:43 96.9 60 16 179/74 (109) 95 03/06/18 18:16 97.9 62 16 169/80 (109) 96 I/O 03/06/18 03/06/18 03/06/18 03/07/18 03/07/18 03/07/18 07:00 15:00 23:00 07:00 15:00 23:00 Intake Total 600 ml 1560 ml 240 ml Balance 600 ml 1560 ml 240 ml Intake Oral 600 ml 1560 ml 240 ml # Voids 1 2 Result Diagram: 03/03/18 0420 03/05/18 0954 Objective Remarks GENERAL: Well-developed, well-nourished. SKIN: Cool and dry. HEAD: Atraumatic. EYES: Pupils equal and round. No scleral icterus. ENT: Mucous membranes pink and moist. NECK: Trachea midline. CARDIOVASCULAR: Regular rate and rhythm. No murmur appreciated. RESPIRATORY: No accessory muscle use. Clear to auscultation. Breath sounds equal bilaterally. MUSCULOSKELETAL: No obvious deformities. No clubbing. No cyanosis. No edema. NEUROLOGICAL: Awake and alert. No obvious cranial nerve deficits. Motor grossly within normal limits. Normal speech. A/P Assessment and Plan Suicidal ideation The patient was recently diagnosed with bipolar disorder and came into the hospital with suicidal thoughts. - Management per psychiatry. Chest pain - resolved Possibly related to anxiety. - troponins and EKGs are negative. - continue Lopressor, lisinopril and statin. Hypothyroidism The patient has not taken her levothyroxine in over 3 weeks secondary to not being able to afford it. Her TSH was elevated over 60. She believes her home dose of levothyroxine was 0.5. - levothyroxine at 50 mcg - Repeat TSH as an outpatient in 6 weeks. -Chills likely related to abnormal thyroid levels. Acute renal failure improving w/ IVF Hypokalemia -Creatinine 1.12--> 1.07, improving - avoid nephrotoxins. -Continue to encourage PO intake. -K replaced, potassium level this morning 3.5 UTI+ Enterococcus faecalis 03/02 -Started Levaquin on 03/02, organism sensitive to fluoroquinolone -afebrile, with no leukocytosis. -We will need to follow-up with surgeon for cystocele. Multiple myeloma The patient is on chemotherapy (Revlimid). - continue home medication regimen. - outpt follow-up. Paroxysmal atrial fibrillation -Currently in normal sinus rhythm, continue beta-pierce. -Restart patient's Eliquis 5 mg twice daily, recheck renal function for dosing adjustments per HTN -BP BP this morning continues to be slightly elevated, discussed with patient increase of lisinopril to 10 mg daily -Continue metoprolol 12.5 twice daily. Hyperglycemia May be a stress reaction. - a1c 6.0 Nausea, possibly related to Levaquin Constipation, resolved -Continue PPI, as needed Zofran -Continue bowel regimen with as needed laxatives as needed. DVT prophylaxis-Eliquis Discussed with patient and nurse. Michael Thompson Mar 07, 2018 08:11
--- NOTE | 2018-03-07 08:51 | HHI.PYPN ---
Subjective Remarks Patient seen in her room with RN, chart reviewed, patient compliant medications. Patient's speech rate and rhythm a slightly slower though there is still some vigilance some resistance to medication. Today she does deny suicidality homicidality. She was somewhat vague about voices of though. For now continue treatment Review of Systems Except as stated in HPI: all other systems reviewed are Neg Mental Status Examination Appearance: Appropriate Consciousness: Alert Orientation: x4 Motor Activity: Other (No motor abnormalities noted) Speech: Rapid Language: Adequate Fund of Knowledge: Adequate Attention and Concentration: Easily Distracted Memory: Unremarkable Mood: Other (Somewhat elevated) Affect: Labile Thought Process & Associations: Loose associations, Tangential Thought Content: Racing thoughts Hallucination Type: None Delusion Type: None Suicidal Ideation: Yes Suicidal Plan: No Suicidal Intention: No Homicidal Ideation: No Homicidal Plan: No Homicidal Intention: No Insight: Fair Judgment: Impulsive Results Vitals/IOs Vital Signs Date Time Temp Pulse Resp B/P (MAP) Pulse Ox O2 Delivery O2 Flow Rate FiO2 03/07/18 04:43 96.9 60 16 179/74 (109) 95 03/03/18 07:29 Room Air Intake and Output 03/07/18 03/07/18 03/08/18 08:00 16:00 00:00 Intake Total 240 ml Balance 240 ml Assessment & Plan Problem List: (1) Bipolar disorder, curr episode mixed, severe, w/o psychotic features ICD Codes: F31.63 - Bipolar disorder, current episode mixed, severe, without psychotic features Assessment & Plan Estimated LOS: days patient remained somewhat manic grandiose and intrusive vigilant and suspicious though slightly softer than 2 days ago. For now continue treatment Justification for Cont. Inpt. At this time patient would decompensate a place to a lower level of care Discharge Planning Possible return to her home Request HC Surrog/Guard Advoc?: No Ulysses Green MD Mar 07, 2018 08:51
[2018-03-07] MEDS: lamoTRIgine 100 MG TAB PO SCH (10:42)
[2018-03-07] MEDS: METOPROLOL TARTRATE 25 MG TAB PO SCH ×2 (10:42→21:53)
[2018-03-07] MEDS: DOCUSATE SODIUM 50 MG/SENNA 8.6 MG TAB PO SCH ×2 (10:42→21:53)
[2018-03-07] MEDS: PANTOPRAZOLE SOD 20 MG DELAYED RELEASE TAB PO SCH (10:42)
[2018-03-07] MEDS: ARIPiprazole 5 MG TAB PO SCH (10:42)
[2018-03-07] MEDS: LISINOPRIL 10 MG TAB PO SCH (10:42)
[2018-03-07] MEDS: LEVOFLOXACIN 750 MG TAB PO SCH (10:43)
[2018-03-07] MEDS: ACYCLOVIR 200 MG CAP PO SCH ×2 (10:43→21:53)
[2018-03-07] MEDS: APIXABAN 5 MG TABLET PO SCH ×2 (10:43→21:53)
[2018-03-07] MEDS: FLUTICASONE PROPIONATE 50 MCG/ACT 16 GM NASAL SPRAY EACH NARE SCH ×2 (10:59→21:00)
[2018-03-07 18:35] VITALS: BP 154/98; PULSE 79; RESP 16; TEMP 98.1; O2SAT 97
[2018-03-07] MEDS: REVLIMID 15 MG PO SCH (21:00)
[2018-03-07] MEDS: PRAVASTATIN SOD 10 MG TAB PO SCH (21:53)
[2018-03-07] MEDS: LORazepam 1 MG TAB PO PRN (21:59)
[2018-03-08 04:35] VITALS: BP 152/87; PULSE 73; RESP 15; TEMP 99; O2SAT 97
[2018-03-08] MEDS: ACETAMINOPHEN 325 MG TAB PO PRN ×2 (06:14→18:22)
[2018-03-08] MEDS: LEVOTHYROXINE SODIUM 50 MCG TAB PO SCH (06:15)
[2018-03-08] MEDS: ACYCLOVIR 200 MG CAP PO SCH ×2 (08:22→21:12)
[2018-03-08] MEDS: APIXABAN 5 MG TABLET PO SCH ×2 (08:22→21:12)
[2018-03-08] MEDS: lamoTRIgine 100 MG TAB PO SCH (08:22)
[2018-03-08] MEDS: LISINOPRIL 10 MG TAB PO SCH (08:22)
[2018-03-08] MEDS: ARIPiprazole 5 MG TAB PO SCH (08:23)
[2018-03-08] MEDS: DOCUSATE SODIUM 50 MG/SENNA 8.6 MG TAB PO SCH ×2 (08:24→21:12)
[2018-03-08] MEDS: PANTOPRAZOLE SOD 20 MG DELAYED RELEASE TAB PO SCH (08:24)
[2018-03-08] MEDS: METOPROLOL TARTRATE 25 MG TAB PO SCH ×2 (08:26→21:12)
[2018-03-08] MEDS: FLUTICASONE PROPIONATE 50 MCG/ACT 16 GM NASAL SPRAY EACH NARE SCH ×2 (08:26→21:12)
[2018-03-08 18:00] VITALS: BP_SYST 127; BP_SYST 179; BP_DIAS 92; BP_DIAS 98; PULSE 80; PULSE 86; RESP 16; TEMP 98.1; TEMP 98.6; O2SAT 98
[2018-03-08] MEDS: MAGNESIUM HYDROXIDE SUSP 30 ML CUP PO PRN (18:10)
[2018-03-08 18:11] VITALS: BP 176/98; PULSE 82
--- NOTE | 2018-03-08 18:21 | HHI.PR ---
Subjective Remarks Follow up visit constipation, HTN. Patient seen and examined. Reports x4 days not having BM. Nausea complaint. No vomiting. No chest pain, fevers, chills. Objective Vitals Vital Signs Date Time Temp Pulse Resp B/P (MAP) Pulse Ox O2 Delivery O2 Flow Rate FiO2 03/08/18 18:11 82 176/98 (124) 03/08/18 18:00 98.6 80 16 179/92 (121) 98 03/08/18 06:15 20 03/08/18 04:35 99.0 73 15 152/87 (108) 97 03/07/18 18:35 98.1 79 16 154/98 (116) 97 I/O 03/07/18 03/07/18 03/07/18 03/08/18 03/08/18 03/08/18 07:00 15:00 23:00 07:00 15:00 23:00 Intake Total 240 ml 2160 ml 960 ml 240 ml 720 ml Balance 240 ml 2160 ml 960 ml 240 ml 720 ml Intake Oral 240 ml 2160 ml 960 ml 240 ml 720 ml # Voids 2 1 1 Result Diagram: 03/07/18 0831 Imaging Last Impressions Renal Ultrasound 03/02/18 0000 Signed Impressions: CONCLUSION: 1. Asymmetric renal size with decreased size of right kidney. 2. No evidence of hydronephrosis, suspicious renal masses or nephrolithiasis. Objective Remarks GENERAL: This is a well-nourished, well-developed patient, in no apparent distress. CARDIOVASCULAR: Regular rate and rhythm without murmurs, gallops, or rubs. RESPIRATORY: Clear to auscultation. Breath sounds equal bilaterally. No wheezes , rales, or rhonchi. GASTROINTESTINAL: Abdomen soft, non-tender, slightly distended. Hypoactive bowel sounds MUSCULOSKELETAL: Extremities without clubbing, cyanosis, or edema. NEURO: Alert & Oriented to person, place. Moves all ext x4. Normal speech. A/P Assessment and Plan 72-year-old female with a recent diagnosis of bipolar disorder who is presenting to the hospital for severe depression and suicidal ideation. Suicidal ideation Recently diagnosed with bipolar disorder and came into the hospital with suicidal thoughts. - Management per psychiatry. Chest pain - resolved Possibly related to anxiety. - troponins and EKGs are negative. - continue Lopressor, lisinopril and statin. -Increase Lopressor for BP control Hypothyroidism The patient has not taken her levothyroxine in over 3 weeks secondary to not being able to afford it. Her TSH was elevated over 60. She believes her home dose of levothyroxine was 0.5. - levothyroxine at 50 mcg - Repeat TSH as an outpatient in 6 weeks. Acute renal failure improving w/ IVF Hypokalemia -Creatinine 1.12--> 1.07, improving - avoid nephrotoxins. -Continue to encourage PO intake. UTI+ Enterococcus faecalis 03/02 -Cont Levaquin on 03/02, organism sensitive to fluoroquinolone -afebrile, with no leukocytosis. Multiple myeloma The patient is on chemotherapy (Revlimid). - continue home medication regimen. - outpt follow-up. Paroxysmal atrial fibrillation -Currently in normal sinus rhythm, continue beta-pierce. -Eliquis 5 mg twice daily, recheck renal function for dosing adjustments HTN, uncontrolled -lisinopril to 10 mg daily, increase metoprolol 25mg BID -PRN clonidine Hyperglycemia, borderline DM May be a stress reaction. - a1c 6.0 - Enc lifestyle changes diet and exercise Nausea, possibly related to Levaquin Constipation -Continue PPI, as needed Zofran -Continue bowel regimen with as needed laxatives as needed. -Lactulose and bisacodyl now DVT prophylaxis-Eliquis Discussed with patient and nurse. Chon Lamb Mar 08, 2018 18:21
[2018-03-08] MEDS ORDERED: BISACODYL 10 MG SUPP RECTAL ONE (18:30)
[2018-03-08] MEDS ORDERED: LACTULOSE SYRUP 20 GM/30 ML CUP PO ONE (18:30)
[2018-03-08 20:05] VITALS: BP 134/86; PULSE 88; RESP 18
[2018-03-08] MEDS: REVLIMID 15 MG PO SCH (21:00)
[2018-03-08] MEDS: PRAVASTATIN SOD 10 MG TAB PO SCH (21:12)
[2018-03-09] MEDS: LORazepam 1 MG TAB PO PRN ×2 (02:19→20:34)
[2018-03-09 05:36] VITALS: BP 140/88; PULSE 62; RESP 16; TEMP 97.7; O2SAT 98
[2018-03-09] MEDS: LEVOTHYROXINE SODIUM 50 MCG TAB PO SCH (06:05)
--- NOTE | 2018-03-09 09:23 | HHI.PYPN ---
Subjective Remarks Patient was seen and case discussed with nursing. Patient continues to improve. She says her suicidal ideation has resolved and she is looking forward to feeding her animals when she gets discharged. Mood is "better." Eating and sleeping well. Social on the unit Mental Status Examination Appearance: Appropriate Consciousness: Alert Orientation: x4 Motor Activity: Other (No motor abnormalities noted) Speech: Rapid Language: Adequate Fund of Knowledge: Adequate Attention and Concentration: Easily Distracted Memory: Unremarkable Mood: Other (Somewhat elevated) Affect: Labile Thought Process & Associations: Loose associations, Tangential Thought Content: Racing thoughts Hallucination Type: None Delusion Type: None Suicidal Ideation: No Suicidal Plan: No Suicidal Intention: No Homicidal Ideation: No Homicidal Plan: No Homicidal Intention: No Insight: Fair Judgment: Impulsive Results Vitals/IOs Vital Signs Date Time Temp Pulse Resp B/P (MAP) Pulse Ox O2 Delivery O2 Flow Rate FiO2 03/09/18 05:36 97.7 62 16 140/88 (105) 98 Assessment & Plan Problem List: (1) Bipolar disorder, curr episode mixed, severe, w/o psychotic features ICD Codes: F31.63 - Bipolar disorder, current episode mixed, severe, without psychotic features Assessment & Plan Continue current treatment plan Justification for Cont. Inpt. Patient would decompensate in a less restrictive setting Request HC Surrog/Guard Advoc?: No Donovan Benavides DO Mar 09, 2018 09:23
[2018-03-09] MEDS: METOPROLOL TARTRATE 25 MG TAB PO SCH ×2 (09:28→20:33)
[2018-03-09] MEDS: DOCUSATE SODIUM 50 MG/SENNA 8.6 MG TAB PO SCH ×2 (09:28→20:33)
[2018-03-09] MEDS: FLUTICASONE PROPIONATE 50 MCG/ACT 16 GM NASAL SPRAY EACH NARE SCH ×2 (09:28→20:35)
[2018-03-09] MEDS: APIXABAN 5 MG TABLET PO SCH ×2 (09:28→20:33)
[2018-03-09] MEDS: PANTOPRAZOLE SOD 20 MG DELAYED RELEASE TAB PO SCH (09:28)
[2018-03-09] MEDS: ACYCLOVIR 200 MG CAP PO SCH ×2 (09:29→20:33)
[2018-03-09] MEDS: ARIPiprazole 5 MG TAB PO SCH (09:29)
[2018-03-09] MEDS: lamoTRIgine 100 MG TAB PO SCH (09:29)
[2018-03-09] MEDS: LISINOPRIL 10 MG TAB PO SCH (09:29)
--- NOTE | 2018-03-09 11:16 | HHI.PR ---
Subjective Remarks Follow-up constipation and HTN. Patient is seen and examined in her room, she continues to complain of constipation even after taking suppository. She denies any abdominal pain or discomfort. Denies any N/V, SOB, cough, fever or chills. Concerns over a small scab on right lateral foot. Scab with minimal redness open to air, does not appear infected. This was discussed with patient. Objective Vitals Vital Signs Date Time Temp Pulse Resp B/P (MAP) Pulse Ox O2 Delivery O2 Flow Rate FiO2 03/09/18 05:36 97.7 62 16 140/88 (105) 98 03/08/18 20:05 88 18 134/86 (102) 03/08/18 18:11 82 176/98 (124) 03/08/18 18:00 98.6 80 16 179/92 (121) 98 I/O 03/08/18 03/08/18 03/08/18 03/09/18 03/09/18 03/09/18 07:00 15:00 23:00 07:00 15:00 23:00 Intake Total 240 ml 720 ml 480 ml Balance 240 ml 720 ml 480 ml Intake Oral 240 ml 720 ml 480 ml # Voids 1 1 # Bowel Movements 1 Result Diagram: 03/07/18 0831 Imaging Last Impressions Renal Ultrasound 03/02/18 0000 Signed Impressions: CONCLUSION: 1. Asymmetric renal size with decreased size of right kidney. 2. No evidence of hydronephrosis, suspicious renal masses or nephrolithiasis. Objective Remarks GENERAL: Well-developed, well-nourished. SKIN: Cool and dry. HEAD: Atraumatic. EYES: Pupils equal and round. No scleral icterus. ENT: Mucous membranes pink and moist. NECK: Trachea midline. CARDIOVASCULAR: Regular rate and rhythm. No murmur appreciated. RESPIRATORY: No accessory muscle use. Clear to auscultation. Breath sounds equal bilaterally. MUSCULOSKELETAL: No obvious deformities. No clubbing. No cyanosis. No edema. NEUROLOGICAL: Awake and alert. No obvious cranial nerve deficits. Motor grossly within normal limits. Normal speech. A/P Assessment and Plan Suicidal ideation The patient was recently diagnosed with bipolar disorder and came into the hospital with suicidal thoughts. - Management per psychiatry. Chest pain - resolved Possibly related to anxiety. - troponins and EKGs are negative. - continue Lopressor, lisinopril and statin. Hypothyroidism The patient has not taken her levothyroxine in over 3 weeks secondary to not being able to afford it. Her TSH was elevated over 60. She believes her home dose of levothyroxine was 0.5. - levothyroxine at 50 mcg - Repeat TSH as an outpatient in 6 weeks. -Chills likely related to abnormal thyroid levels. Acute renal failure improving w/ IVF Hypokalemia -Creatinine 1.12--> 1.07, improving - avoid nephrotoxins. -Continue to encourage PO intake. -K replaced-->3.5 UTI+ Enterococcus faecalis 03/02 -Started Levaquin on 03/02, organism sensitive to fluoroquinolone, completed 03/09 -afebrile, with no leukocytosis. -We will need to follow-up with surgeon for cystocele. Multiple myeloma The patient is on chemotherapy (Revlimid). - continue home medication regimen. - outpt follow-up. Paroxysmal atrial fibrillation -Currently in normal sinus rhythm, continue beta-pierce. -Restart patient's Eliquis 5 mg twice daily, recheck renal function for dosing adjustments per HTN -BP improved, continue lisinopril to 10 mg daily, and metoprolol 25mg BID Hyperglycemia May be a stress reaction. - a1c 6.0 Nausea, possibly related to Levaquin Constipation, resolved -Continue PPI, as needed Zofran Constipation -Ongoing despite Lactulose, dulcolax yesterday. -Continue Karol-Colace and will try Magcitrate today DVT prophylaxis-Eliquis Discussed with patient and nurse. Michael Thompson Mar 09, 2018 11:16
[2018-03-09] MEDS ORDERED: MAGNESIUM CITRATE SOLN 300 ML BTL PO ONE (15:00)
[2018-03-09] MEDS ORDERED: SOD PHOSPHATE/SOD BIPHOSPHATE (ADULT) ENEMA 133ML PR PRN (16:15)
[2018-03-09 17:11] VITALS: BP 156/76; PULSE 62; RESP 16; TEMP 98.1; O2SAT 97
--- NOTE | 2018-03-09 17:13 | RADRPT ---
EXAM DATE: 03/09/2018 5:05 PM EDT AGE/SEX: 72 years / Female INDICATIONS: Constipation for 7 days. CLINICAL DATA: This is the patient's initial encounter. Patient reports that signs and symptoms have been present for 1 week and indicates a pain score of Nonresponsive. MEDICAL/SURGICAL HISTORY: . Transient ischemic attack. Melanoma. Multiple Myeloma . Abominopla sty. COMPARISON: No prior [facility] exams available for comparison. FINDINGS: The abdominal bowel gas pattern is normal. No abnormal masses, calcifications, or organomegaly is s een. Mild degenerative changes and scoliosis of the thoracolumbar spine are noted. CONCLUSION: 1. No bowel obstruction, ileus or perforation. 2. Mild degenerative changes and scoliosis of the thoracolumbar spine. Electronically signed by: Bal Chow MD 03/09/2018 5:12 PM EDT
[2018-03-09] MEDS: PRAVASTATIN SOD 10 MG TAB PO SCH (20:33)
[2018-03-09] MEDS: ACETAMINOPHEN 325 MG TAB PO PRN (20:34)
[2018-03-09] MEDS: REVLIMID 15 MG PO SCH (20:35)
[2018-03-10] MEDS: hydrOXYzine HCL 50 MG TAB PO PRN (00:55)
[2018-03-10] MEDS: ACETAMINOPHEN 325 MG TAB PO PRN (00:55)
[2018-03-10] MEDS: LEVOTHYROXINE SODIUM 50 MCG TAB PO SCH (05:37)
[2018-03-10 06:08] VITALS: BP 166/78; PULSE 58; RESP 17; TEMP 98.2; O2SAT 94
[2018-03-10] MEDS: PANTOPRAZOLE SOD 20 MG DELAYED RELEASE TAB PO SCH (08:15)
[2018-03-10] MEDS: LISINOPRIL 10 MG TAB PO SCH (08:15)
[2018-03-10] MEDS: DOCUSATE SODIUM 50 MG/SENNA 8.6 MG TAB PO SCH (08:15)
[2018-03-10] MEDS: APIXABAN 5 MG TABLET PO SCH (08:15)
[2018-03-10] MEDS: METOPROLOL TARTRATE 25 MG TAB PO SCH (08:15)
[2018-03-10] MEDS: ARIPiprazole 5 MG TAB PO SCH (08:15)
[2018-03-10] MEDS: lamoTRIgine 100 MG TAB PO SCH (08:15)
[2018-03-10] MEDS: ACYCLOVIR 200 MG CAP PO SCH (08:15)
[2018-03-10] MEDS: FLUTICASONE PROPIONATE 50 MCG/ACT 16 GM NASAL SPRAY EACH NARE SCH (08:15)
[2018-03-10] MEDS ORDERED: LORA-474 PO ×2 (10:36→10:38)
[2018-03-10] MEDS ORDERED: ARIP1TAB11 PO (10:36)
[2018-03-10] MEDS ORDERED: LISI10TA3 PO (10:36)
[2018-03-10] MEDS ORDERED: LEVO.05 PO (10:36)
[2018-03-10] MEDS ORDERED: APIX5TAB PO (10:36)
[2018-03-10] MEDS ORDERED: METO25TA3 PO (10:36)
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
--- NOTE | 2018-03-10 11:59 | HHI.FF ---
Face to Face Verification Diagnosis: (1) Bipolar disorder, curr episode mixed, severe, w/o psychotic features Home Health Nursing Order: Signs/symptoms of disease process Medication education-adverse effect Nursing assessment with vital signs Instructions: intermediate with plan for home psychiatric nursing. I have seen patient Yamileth Eid on 03/10/18. My clinical findings support the need for the requested home health care services because: Need for psychosocial assistance I certify that my clinical findings support that this patient is homebound because: Need for psychosocial assistance Fabián Workman MD Mar 10, 2018 11:59
== END 2018-03-10 15:40 | disposition home or self-care (01) | DRG 885 ==
LOC: NEPD 10:15 → NEDA 12:49 → NEDH 19:22 → H4EA 03-03 10:30 → H260 03-08 13:50
PROVIDERS: ADMIT Psychiatry & Neurology Psychiatry; ATTEND Psychiatry & Neurology Psychiatry
DX: F31.63 Bipolar disorder, current episode mixed, severe, without psychotic features (principal); N17.9 Acute kidney failure, unspecified; C90.00 Multiple myeloma not having achieved remission; I48.0 Paroxysmal atrial fibrillation; R45.851 Suicidal ideations; M41.9 Scoliosis, unspecified; B95.2 Enterococcus as the cause of diseases classified elsewhere; N39.0 Urinary tract infection, site not specified; I10 Essential (primary) hypertension; R73.9 Hyperglycemia, unspecified; Z86.73 Personal history of transient ischemic attack (TIA), and cerebral infarction without residual deficits; R07.9 Chest pain, unspecified; K59.00 Constipation, unspecified; R73.03 Prediabetes; E03.9 Hypothyroidism, unspecified; E87.6 Hypokalemia; G47.33 Obstructive sleep apnea (adult) (pediatric); J45.909 Unspecified asthma, uncomplicated; K21.9 Gastro-esophageal reflux disease without esophagitis; Z85.828 Personal history of other malignant neoplasm of skin
CPT/HCPCS: 74018; 76775; 80048; 80053; 80061; 80307; 81001; 82306; 82570; 82607; 83036; 83735; 84100; 84132; 84300; 84439; 84443; 84481; 84484; 85025; 93005; 99285; Q0163